=== PATIENT | female | born 1970 | race Caucasian/White ===

== ENCOUNTER 2020-01-12 13:24 | Inpatient (IN) | payer OTHER ==
[~2020-01-12] VITALS: Ht 175.3 cm; Wt 102.1 kg
[~2020-01-12 13:24] MED LIST: ALBUTEROL INHAL17 GM IH; MEDROL DOSPAK21 TAB PO; NOHOMEMEDICATIONS; SINUS WASH NET1 EACH NS; TESSALON PERLE100 MG PO; ZPAK PO
[2020-01-12 13:45] VITALS: BP 122/73
[2020-01-12 14:44] LABS: ABSOLUTE BASOPHILS 0.1 thou/uL (0.0-0.2); ABSOLUTE EOSINOPHILS 0.3 thou/uL (0.0-0.7); ABSOLUTE LYMPHOCYTES 2.1 thou/uL (0.8-5.3); ABSOLUTE MONOCYTES 0.5 thou/uL (0.0-1.2); ABSOLUTE NEUTROPHILS 7.8 thou/uL (1.6-8.1); BASOPHILS 0.5 %; EOSINOPHILS 2.4 %; HEMATOCRIT 41.1 % (37.0-47.0); LYMPHOCYTES 19.3 %; MCH 29.9 pg (26.0-34.0); MCHC 34.1 g/dL (28.0-37.0); MCV 87.6 fL (80.0-100.0); MONOCYTES 4.9 %; MPV 7.2 fl. (7.2-11.1); NUCLEATED RBCS 0 /100WBC; PLATELET COUNT* 232 thou/uL (150-400); POLYS 72.9 %; RBC 4.69 mil/uL (4.20-5.00); RDW-CV 13.1 % (10.5-14.5); WBC 10.7 thou/uL (4.0-11.0)
[2020-01-12 15:05] LABS: ALBUMIN 3.8 g/dL (3.4-5.0); CALCIUM 8.9 mg/dL (8.5-10.1); MAGNESIUM 2.1 mg/dL (1.8-2.4); PHOSPHORUS* 3.6 mg/dL (2.5-4.9); TOTAL BILIRUBIN 0.9 mg/dL (<0.1-1.0); TOTAL PROTEIN 6.8 g/dL (6.4-8.2)
[2020-01-12] MEDS ORDERED: TROKENDI XR200 MG PO (15:37)
[2020-01-12] MEDS ORDERED: ZANAFLEX2 M1 PO (15:39)
[2020-01-12 20:39] VITALS: BP 111/65
[2020-01-12 21:39] LABS: URINE BILIRUBIN NEGATIVE (Negative); URINE BLOOD NEGATIVE (Negative); URINE CLARITY CLEAR; URINE COLOR YELLOW; URINE GLUCOSE-RANDOM NEGATIVE (Negative); URINE KETONES 1+ (Negative); URINE LEUKOCYTES-REFLEX NEGATIVE (Negative); URINE NITRITE-REFLEX NEGATIVE (Negative); URINE PROTEIN NEGATIVE (Negative); URINE SPECIFIC GRAVITY >= 1.030 (1.005-1.030); URINE UROBILINOGEN 0.2 E.U./dl (0.2-1.0)
[2020-01-12 23:06] LABS: IgG 606 mg/dL (586-1602); IgM 29 mg/dL (26-217)
[2020-01-13 02:06] LABS: IgA 37 mg/dL (87-352)
[2020-01-13 05:18] LABS: ABSOLUTE EOSINOPHILS 0.4 thou/uL (0.0-0.7); ABSOLUTE LYMPHOCYTES 2.4 thou/uL (0.8-5.3); ABSOLUTE MONOCYTES 0.4 thou/uL (0.0-1.2); ABSOLUTE NEUTROPHILS 5.8 thou/uL (1.6-8.1); BASOPHILS 0.4 %; EOSINOPHILS 4.1 %; HEMATOCRIT 35.6 % (37.0-47.0); HEMOGLOBIN 12.3 gm/dL (12.0-15.0); LYMPHOCYTES 26.8 %; MCH 30.2 pg (26.0-34.0); MCHC 34.7 g/dL (28.0-37.0); MCV 87.1 fL (80.0-100.0); MONOCYTES 4.9 %; MPV 7.7 fl. (7.2-11.1); NUCLEATED RBCS 0 /100WBC; PLATELET COUNT* 199 thou/uL (150-400); POLYS 63.8 %; RBC 4.09 mil/uL (4.20-5.00); RDW-CV 12.9 % (10.5-14.5); WBC 9.1 thou/uL (4.0-11.0)
[2020-01-13 05:31] LABS: CALCIUM 7.5 mg/dL (8.5-10.1); POTASSIUM 3.7 mmol/L (3.5-5.1)
[2020-01-13 07:35] VITALS: BP 101/60
[2020-01-13 17:01] VITALS: BP 136/78
[2020-01-13 22:30] VITALS: BP 131/74
[2020-01-14 05:00] LABS: CALCIUM 8.3 mg/dL (8.5-10.1); CREATININE 0.9 mg/dL (0.6-1.3); MAGNESIUM 2.1 mg/dL (1.8-2.4); POTASSIUM 3.7 mmol/L (3.5-5.1)
[2020-01-14 07:40] VITALS: BP 130/74
[2020-01-14] MEDS ORDERED: BENTYL 20 MG TA20 M1 PO (16:03)
[2020-01-14] MEDS ORDERED: COLESTID1 GM PO (16:05)
[2020-01-14 16:12] VITALS: BP 130/74
[2020-01-14 16:54] VITALS: BP 130/74
--- NOTE | 2020-01-16 14:46 | CON ---
[facility] [address] [place] [address] CONSULTATION Name: JOSEFAJAQUELINE CHRISTIAN Room: [address] [facility].R.#: [id number] Admission: 01/12/20 Attend Phys: Mitch Ding MD Discharge: 01/14/20 Date of : 74 Report #: [id number] THIS REPORT FOR: //name// cc: FANY CHILDERS MD, OLUWATOBI MD ~ DATE OF SERVICE: 01/12/2020 REFERRING PHYSICIAN: Fany Childers M.D. REASON FOR CONSULTATION: Persistent abdominal pain and diarrhea. IMPRESSION: 1. Chronic right lower quadrant pain associated with diarrhea. 2. Nausea, vomiting and abdominal pain, precluding with associated dehydration. RECOMMENDATIONS: 1. I discussed the patient's case with Dr. Ding who agreed to admit the patient to the hospital for IV fluids, antiemetics, parenteral pain medications and further studies. 2. We will proceed with CT enterography to be done of the abdomen and pelvis tomorrow to evaluate for any problems related to her small bowel. 3. We will also check some additional blood work drawn at this time to include a CBC, CMP, sed rate, CRP, tissue transglutaminase antibody as well as a total IgA level. 4. I have discussed those plans with the patient as well and will make further recommendations thereafter. 5. Depending on the results of same, the patient may need to end up having a small bowel capsule study as an outpatient. I have discussed these plans with the patient as well as her and they are agreeable to the same. HISTORY OF PRESENT ILLNESS: The patient is a very pleasant 49-year-old white female who I met for the first time back in mid December of this year, where she was complaining of persistent diarrhea, which has been ongoing for the last several months. There was severe and postprandial in nature which prohibited her from going anywhere. She would have a lot of abdominal cramping as well as a knot in left lower quadrant before she went to the bathroom and it was thought that maybe it was related to antibiotic exposure. The patient exposed to multiple antibiotics because of recurrent ear infections that put her at risk for antibiotic-associated diarrhea, but she underwent a GI stool kit through our office, which was only positive for an enteroaggregative Escherichia coli. I placed her on some Cipro 500 mg twice daily and recommend that she has to undergo colonoscopy. It was done this morning and was completely unrevealing. However, [facility], she states that she has not been able to eat anything for the last several days because of crampy abdominal pain and diarrhea with associated urgency. She was dehydrated. On physical examination it was felt that she would benefit [place] [address] CONSULTATION Name: JOSEFAJAQUELINEYUMIKO CHRISTIAN Room: [address] IN [facility]#: [id number] Admission: 01/12/20 Attend Phys: Mitch Ding MD Discharge: 01/14/20 Date of : 74 Report #: [id number] and treatment. Prior to all this, she was not having issues with her bowels or bowel frequency. She tried to be on a gluten-free diet for quite some time and did not have any big change with the same. She has undergone a previous colonoscopy in 2018, which was unrevealing and there is no history of inflammatory bowel disease per her report. ALLERGIES: LATEX, ADHESIVE BAND-AIDS AND SULFA AND SHE HAS SOME INTOLERANCE TO NARCOTICS. MEDICATIONS: At home include are supposed to be she was on dicyclomine 20 mg 3 times daily, tizanidine and Trokendi XR, extended release once daily. PAST MEDICAL AND SURGICAL HISTORY: Remarkable for chronic leukocytosis, which has been evaluated by Dr. Bradly Jensen in the past and felt to be just benign tissue. She has a history of migraines, history of reflux, chronic fatigue syndrome and chronic diarrhea. She has had previous cholecystectomy in 2014 for acalculous cholecystitis, both upper and lower endoscopy in 12/2017 at [facility] which were unrevealing. She had previous hysterectomy and sinus surgery, but has had recurrent ear infections; she has been on antibiotics for the same. SOCIAL HISTORY: The patient is , does not smoke or drink. FAMILY HISTORY: Negative. PHYSICAL EXAMINATION: GENERAL: Revealed a pleasant, but a distraught 49-year-old white female who is awake and alert. CARDIOPULMONARY: Benign. She was mildly tachycardic. ABDOMEN: Soft, diffusely tender. No rebound or guarding noted. DISCUSSION: At the present time, it is unclear to me why she is having all these issues. I recommend that she be admitted to the hospital for further evaluation and treatment. We will proceed with CT imaging and pathologic study and serologic studies to evaluate for other causes for her issues. She may need to be placed on something other than just the dicyclomine and possibly a bile acid sequestering for possible postcholecystectomy diarrhea. It should be noted that she underwent an upper endoscopy, small bowel biopsies in the past, which was negative [place] [address] CONSULTATION Name: JAQUELINE RIVERO Room: [address]#: [id number] Admission: 01/12/20 Attend Phys: Mitch Ding MD Discharge: 01/14/20 Date of : 74 Report #: [id number] I have discussed all these plans with the patient as well as her , Hugo, they are agreeable to the same. <ELECTRONICALLY SIGNED> By: Herbert Vaughan DO 01/16/20 [id number] [id number] Vianney Vaughan DO /nt
== END 2020-01-14 16:54 | disposition home or self-care (01) | DRG 392 ==
LOC: M.3W 13:24
PROVIDERS: Internal Medicine Gastroenterology; ADMIT Internal Medicine; ATTEND Internal Medicine
DX: K52.9 Noninfective gastroenteritis and colitis, unspecified (principal); G43.909 Migraine, unspecified, not intractable, without status migrainosus; K21.9 Gastro-esophageal reflux disease without esophagitis; E86.9 Volume depletion, unspecified; Z20.828 Contact with and (suspected) exposure to other viral communicable diseases; Z88.2 Allergy status to sulfonamides; Z88.8 Allergy status to other drugs, medicaments and biological substances; Z88.6 Allergy status to analgesic agent; Z91.040 Latex allergy status; Z90.710 Acquired absence of both cervix and uterus; Z90.49 Acquired absence of other specified parts of digestive tract